=== PATIENT | female | born 1995 | race Caucasian/White ===

== ENCOUNTER 2020-12-15 17:33 | Emergency (ER) | payer MEDICAID ==
[~2020-12-15] VITALS: Ht 180.3 cm; Wt 62.6 kg
[2020-12-15] MEDS ORDERED: SODIUM CHLORIDE 0.9% 1,000ML IVBOLUS ONE (18:30)
[2020-12-15] MEDS ORDERED: ONDANSETRON 2MG/ML, 2ML IVPush ONE (18:30)
[2020-12-15] MEDS: MORPHINE SULFATE 4 MG/ML, 1ML IVPush PRN ×2 (19:00→20:10)
[2020-12-15] MEDS ORDERED: ONDANSETRON 2MG/ML, 2ML ONE (19:09)
[2020-12-15] MEDS ORDERED: MORPHINE SULFATE 4 MG/ML, 1ML ONE ×2 (19:10→20:06)
[2020-12-15 19:24] LABS: BASOPHILS % (AUTO) 1 % (0-1); EOSINOPHILS % (AUTO) 3 % (1-7); LYMPHOCYTES % (AUTO) 30 % (22-44); MEAN CORPUSCULAR HEMOGLOBIN 27.7 pg (27.0-34.8); MEAN CORPUSCULAR HGB CONC 33.5 g/dL (32.4-35.8); MEAN PLATELET VOLUME 8.7 fL (7.4-10.4); MONOCYTES % (AUTO) 7 % (2-9); NEUTROPHILS % (AUTO) 60 % (42-75); PLATELET COUNT 291 x10^3/uL (130-400); RED BLOOD COUNT 4.66 x10^6/uL (3.82-5.3); RED CELL DISTRIBUTION WIDTH 14.7 % (9.6-15.2)
[2020-12-15 19:28] LABS: ALANINE AMINOTRANSFERASE 19 U/L (12-78); ALBUMIN 4.2 g/dL (3.4-5.0); ANION GAP 7 mmol/L (5-15); CHLORIDE 103 mmol/L (98-107); CREATININE 0.51 mg/dL (0.55-1.02)
[2020-12-15 19:32] LABS: ALKALINE PHOSPHATASE 67 U/L (45-117); BILIRUBIN,TOTAL 0.7 mg/dL (0.2-1.0); TOTAL PROTEIN 8.5 g/dL (6.4-8.2)
[2020-12-15] MEDS ORDERED: OMNIPAQUE 350 MG/ML, 100ML BOTTLE ONE (20:25)
[2020-12-15] MEDS ORDERED: DICYCLOMINE 10 MG/ML, 2ML IM ONE (20:30)
[2020-12-15] MEDS ORDERED: KETOROLAC 30 MG/1 ML IVPush ONE (21:00)
--- NOTE | 2020-12-15 21:36 | NUR ---
task rn: Patient/significant other given discharge instructions and they have confirmed that they understand the instructions. Patient ambulatory with steady gait. NAD, all questions answered appropriately, denies additional needs at this time. No personal belongings left in room after discharge.
[2020-12-15 21:37] VITALS: BP 99/61
== END 2020-12-15 21:55 | disposition home or self-care (01) ==
LOC: EDBD 17:33 → ED 20:00
DX: R10.11 Right upper quadrant pain (principal); R11.2 Nausea with vomiting, unspecified
CPT/HCPCS: 36415; 74177; 76700; 80053; 83690; 84703; 85025; 96361; 96372; 96374; 96375; 96376; 99285; J0500; J1885; J2270; J2405; J7030; Q9967

== ENCOUNTER 2020-12-16 16:36 | Emergency (ER) | payer MEDICAID ==
[~2020-12-16] VITALS: Ht 180.3 cm; Wt 66.2 kg
[2020-12-16 18:51] LABS: BASOPHILS % (AUTO) 1 % (0-1); EOSINOPHILS % (AUTO) 4 % (1-7); LYMPHOCYTES % (AUTO) 27 % (22-44); MEAN CORPUSCULAR HGB CONC 32.7 g/dL (32.4-35.8); MEAN PLATELET VOLUME 8.2 fL (7.4-10.4); MONOCYTES % (AUTO) 9 % (2-9); NEUTROPHILS % (AUTO) 60 % (42-75); PLATELET COUNT 302 x10^3/uL (130-400); RED BLOOD COUNT 4.69 x10^6/uL (3.82-5.3); RED CELL DISTRIBUTION WIDTH 15.2 % (9.6-15.2)
[2020-12-16 19:01] LABS: ALANINE AMINOTRANSFERASE 19 U/L (12-78); ALBUMIN 3.9 g/dL (3.4-5.0); ANION GAP 7 mmol/L (5-15); CALCIUM 9.3 mg/dL (8.5-10.1); CHLORIDE 104 mmol/L (98-107)
[2020-12-16 19:04] LABS: ALKALINE PHOSPHATASE 61 U/L (45-117); TOTAL PROTEIN 7.8 g/dL (6.4-8.2)
[2020-12-16] MEDS ORDERED: HALOPERIDOL 5 MG/ML ONE (20:17)
[2020-12-16] MEDS ORDERED: DIPHENHYDRAMINE 50 MG/ML, 1ML ONE (20:17)
[2020-12-16] MEDS ORDERED: DIPHENHYDRAMINE 50 MG/ML, 1ML IV ONE (20:30)
[2020-12-16] MEDS ORDERED: HALOPERIDOL 5 MG/ML IM PRN (20:30)
[2020-12-16] MEDS ORDERED: SODIUM CHLORIDE 0.9% 1,000ML IVBOLUS ONE (20:30)
[2020-12-16 20:57] VITALS: BP 102/63
--- NOTE | 2020-12-16 20:57 | NUR ---
PATIENT AMBULATORY TO RESTROOM.
[2020-12-16] MEDS ORDERED: BISACODYL 10 MG SUPP PR PRN (21:30)
[2020-12-16] MEDS ORDERED: KETOROLAC 30 MG/1 ML IV PRN (21:30)
[2020-12-16] MEDS ORDERED: DOCUSATE 100 MG CAPSULE PO PRN (21:30)
[2020-12-16] MEDS ORDERED: MELATONIN 5 MG TABLET PO PRN (21:30)
[2020-12-16] MEDS ORDERED: ONDANSETRON ODT 4 MG PO PRN (21:30)
[2020-12-16] MEDS ORDERED: POLYETHYLENE GLYCOL 17 GM PACKET PO PRN (21:30)
[2020-12-16] MEDS ORDERED: ENALAPRILAT 1.25 MG/ML, 2ML IVPush PRN (21:30)
[2020-12-16] MEDS ORDERED: ONDANSETRON 2MG/ML, 2ML IVPush PRN (21:30)
[2020-12-16] MEDS ORDERED: ACETAMINOPHEN 325 MG TABLET PO PRN (21:30)
--- NOTE | 2020-12-16 22:04 | NUR ---
PATIENT AMBULATORY TO RESTROOM.
--- NOTE | 2020-12-16 22:05 | NUR ---
PATIENT STATES SHE DOESNT WANT TO BE ADMITTED AT THIS TIME. PATIENT STATES SHE IS FEELING FINE AND DENIES PAIN. PATIENT STATES SHE HAS A 5 YEAR OLD SHE NEEDS TO GET TO SLEEP. WILL UPDATE .
--- NOTE | 2020-12-16 22:05 | NUR ---
MD DAMON AWARE PATIENT WANTS TO LEAVE. ADVISED TO SIGN AMA PAPERWORK.
--- NOTE | 2020-12-16 22:10 | NUR ---
AMA PAPERWORK SIGNED AT THIS TIME.
[2020-12-17] MEDS ORDERED: FAMOTIDINE 20 MG TABLET PO SCH (09:00)
== END 2020-12-16 22:15 | disposition left against medical advice (07) ==
LOC: ED 17:00
DX: R10.84 Generalized abdominal pain (principal); R11.2 Nausea with vomiting, unspecified; F17.200 Nicotine dependence, unspecified, uncomplicated
CPT/HCPCS: 36415; 80053; 83690; 85025; 96372; 96374; 99284; J1200; J1630; J7030